=== PATIENT | female | born 1990 | race African-American/Black ===

== ENCOUNTER 2020-11-01 04:12 | Emergency (ER) | payer OTHER ==
[~2020-11-01] VITALS: Ht 162.6 cm; Wt 72.6 kg
[~2020-11-01 04:12] MED LIST: COMPAZINE5 MG PO; DARVOCET-N 1001 EACH PO; LORTAB 5 MG/5001 TAB PO; NOHOMEMEDICATIONS
[2020-11-01] MEDS ORDERED: HYDROCODON-ACE1 EAC7 PO ×2 (04:40→12:43)
[2020-11-01] MEDS ORDERED: ANUSOL-HC25 MG RECTAL ×2 (04:40→12:43)
[2020-11-01 05:10] VITALS: BP 115/80
== END 2020-11-01 05:10 | disposition home or self-care (01) ==
LOC: ER 04:12
DX: K64.4 Residual hemorrhoidal skin tags (principal); J45.909 Unspecified asthma, uncomplicated; Z98.890 Other specified postprocedural states